=== PATIENT | female | born 1960 | race Caucasian/White ===

== ENCOUNTER 2022-02-27 12:07 | Outpatient (CLI) | payer OTHER ==
[~2022-02-27 12:07] MED LIST: Iopamidol 300 61% 100 ML VIAL FS ONE
== END 2022-02-27 12:08 | disposition home or self-care (01) ==
LOC: CSHCT 12:07
PROVIDERS: ATTEND Internal Medicine Hematology & Oncology
DX: C78.7 Secondary malignant neoplasm of liver and intrahepatic bile duct (principal); C18.2 Malignant neoplasm of ascending colon; R59.0 Localized enlarged lymph nodes; K63.9 Disease of intestine, unspecified; Z93.3 Colostomy status
CPT/HCPCS: 71260; 74177; Q9967

== ENCOUNTER 2022-07-16 12:25 | Outpatient (CLI) | payer BC | END 2022-07-16 12:26 | disposition home or self-care (01) | LOC: CSHCT 12:25 | PROVIDERS: ATTEND Internal Medicine Hematology & Oncology | DX: C18.2 Malignant neoplasm of ascending colon (principal); C78.7 Secondary malignant neoplasm of liver and intrahepatic bile duct; K63.9 Disease of intestine, unspecified; Z93.3 Colostomy status | CPT/HCPCS: 71260; 74177 ==